=== PATIENT | male | born 1930 | race Caucasian/White ===

== ENCOUNTER 2021-02-18 16:44 | Emergency (ER) | payer OTHER ==
[~2021-02-18] VITALS: Ht 185.4 cm; Wt 72.6 kg
--- NOTE | ~2021-02-18 | EMS ---
[address] [address] EMS Patient Care Report Name: SKYLER JIMENEZ Room #: REG GEO Simms#: [id number] Admission: 02/18/21 Attend Phys: Discharge: Date of : [birth year] Report #: [id number] THIS REPORT FOR: //name// Report Transmitted: 02/18/2021 16:49 EMS Care Summary [facility] Incident [id number] @ 02/18/2021 15:56 Incident Location [address] [place] [address] Patient SKYLER JIMENEZ Male, 89 Years 1930 Patient Address [address] [place] [address] Patient History Dementia,Hypertension (HTN), Patient Allergies No known allergies, Patient Medications Guaifenesin, Aricept, Seroquel, Chief Complaint Combative Disposition Transported No Lights/[place] Reason Psychiatric Problem/Abnormal Behavior/Suicide Attempt Transported To [facility] Narrative Dispatched code one on a behavioral. ATF Pt sitting in chair at the nurses station, calm and watching EMS as they approached. Pt skin color appeared to be appropriate for race/warm/dry, A&O to self (normal per staff), did not appear to be having trouble breathing, and did not appear to be in any obvious signs [address] [address] EMS Patient Care Report Name: SKYLER JIMENEZ Room #: REG GEO Simms#: [id number] Admission: 02/18/21 Attend Phys: Discharge: Date of : [birth year] Report #: [id number] of distress. Nurse describes episodes of trying to swing at staff, spreading feces around his room and being generally aggressive/ combative. They wanted him to be transported out and to go to [facility], a doctor had called for placement there. Medic informed nurse that [facility] does not do stable transports out of nursing homes to psych facilities. Nurse got very agitated and said this has never happened before and that EMS needs to take him. Medic again restated that she would need to call [facility] for a transfer, especially since the Pt was calm and cooperative now. EMS can only take Pts to the ED and then he would have to be evaluated by an ED doctor for placement. Since Pt already had placement orders, [facility] would be the best route. Nurse stated that she hasn't called [facility] and doesn't want to because they take too long. She then stated that EMS should take Pt to the ED where he will then be admitted. Medic stated that there was no guarantee he would be placed or even see any further then the ED before being sent back, especially at . Nurse called supervisor maintenance and had medic talk to supervisor maintenance, medic repeated everything he had told the other nurse. Billet Bed Operator then stated that he should be taken to ED. Medic asked what for if he was to be admitted to [facility], would try to bounce him as soon as possible. Billet Bed Operator restated that he would be transferred for violent behavior to ED. Medic then asked if anyone had tried to contact Pt DPOA to see if they agreed to him being sent to ED. Facility staff had been too busy trying to push Pt out of door to contact DPOA at all. When daughter was finally gotten najma nieves nurse began to tell her that Pt had to be taken out, that he had to be evaluated at the ED and once he was he'd go straight to the medical center facility in the hospital. Medic asked to speak with the DPOA, medic told the daughter that EMS was more then happy to take the Pt to the ED but once he got there he would need to be triaged by a ED doctor. There was no guarantee that Pt would be admitted through the ED, that if Pt had placement already he needed to be taken by [facility] directly there. Medic went on to state that Pt has been reportedly violent but was calm now and that the facility concern was that the staff did not feel safe with him around right now. Medic restated that he was more then happy to take Pt to the ED but that DPOA would have to approve it. DPKARLA then asked "what exactly are you offering me then" Medic told her that he wasn't offering anything other then a ride to the ED. Daughter did not agree to anything but wanted to speak with the nurse. The nurse and DPOA argued for some time, eventually the nurse telling daughter that if she wasn't going to let EMS take him then she would need to come to the facility and get him herself because he couldn't stay there. They argued more and nurse began telling daughter that in all of her years as a nurse she has never seen EMS do this and that it's because medic was in dereliction of duty simply because he didn't want to deal with the Pt. Medic then firmly told nurse that EMS is happy to take Pt to ED but that they would not kidnap him or lie to DPOA. Eventually it was decided by daughter (confirmed directly with medic over the phone) that Pt would be transported to [facility]. DPOA was under the impression that he would be taken directly from ED to [facility] in patient and when medic again tried to explain, nurse began to talk over medic arguing with him. Medic gave up and with DPKARLA blessing went to transport Pt. Pt was [facility] [address] [address] EMS Patient Care Report Name: SKYLER JIMENEZ Room #: REG [facility]..#: [id number] Admission: 02/18/21 Attend Phys: Discharge: Date of : [birth year] Report #: [id number] cooperative with EMS, he was able to stand and transfer to stretcher with no assistance where he was buckled in and taken to MICU. Pt was transported without event or incident, vitals remained stable through out. Upon arrival care was transferred to UTILITY MECHANIC and Pt was left in ED with no additional complaints at this time. Jolene Jimenez [phone] daughter who medic spoke with on the phone. Initial Vitals @16:40P: 66,R: 14,BP: 171/82,SpO2: 100, @16:27P: 66,R: 14,BP: 173/83,Pain: 0/10,GCS: 14,SpO2: 96,Revised Trauma: 12, Impression Behavioral/psychiatric episode Timeline 15:54,Call Received 15:54,Psap Call 15:56,Dispatched 15:57,En Route 16:00,On Scene 16:04,At Patient 16:26,Depart Scene 16:27,BP: 173/83 M,PULSE: 66,RR: 14 R,SPO2: 96 Ox,ETCO2: ,BG: ,PAIN: 0,GCS: 14, 16:40,At Destination 16:40,BP: 171/82 M,PULSE: 66,RR: 14 R,SPO2: 100 Ox,ETCO2: ,BG: ,PAIN: ,GCS: , 17:06,Call Closed Disclaimer v1.1 Copyright 2020 [employer] This EMS Care Summary contains data elements from the applicable legal record (which may be displayed differently). It is designed to provide pertinent information for the following purposes: continuity of care, clinical quality, and state data reporting. The complete legal record is available to ED staff and administrators of the receiving hospital in [employer] Patient Tracker. All data is provided "as is."
[2021-02-18] MEDS ORDERED: ARICEPT10 M1 PO (17:01)
[2021-02-18] MEDS ORDERED: CLOBETASOL PROP15 GM TOP (17:02)
[2021-02-18] MEDS ORDERED: LAXATIVE5 M1 PO (17:03)
[2021-02-18] MEDS ORDERED: PRESERVISION A1 EAC2 PO (17:04)
[2021-02-18] MEDS ORDERED: ROBITUSSIN100 MG/53 PO (17:04)
[2021-02-18] MEDS ORDERED: SEROQUEL 25 MG25 M1 PO ×2 (17:05)
[2021-02-18] MEDS ORDERED: VITAMIN B-121000 MC2 SUBLING (17:06)
[2021-02-18] MEDS ORDERED: APAP650 PO (17:06)
[2021-02-18] MEDS ORDERED: VITAMIN D350 MC3 PO (17:07)
[2021-02-18] MEDS ORDERED: VITAMIN C1000 MG PO (17:07)
[2021-02-18 17:09] LABS: HEMATOCRIT 34.5 % (42.0-52.0); HEMOGLOBIN 11.4 gm/dL (14.0-18.0); MCH 30.7 pg (26.0-34.0); MCV 93.2 fL (80.0-100.0); RBC 3.7 mil/uL (4.50-6.00); RDW 14.6 % (10.5-14.5); WBC 3.5 thou/uL (4.0-11.0)
[2021-02-18 17:18] LABS: CALCIUM 8.5 mg/dL (8.5-10.1); CREATININE 1.1 mg/dL (0.7-1.3); POTASSIUM 3.6 mmol/L (3.5-5.1)
[2021-02-18 17:26] LABS: ALBUMIN 3.3 g/dL (3.4-5.0); TOTAL BILIRUBIN 0.2 mg/dL (0.2-1.0); TOTAL PROTEIN 6.8 g/dL (6.4-8.2)
[2021-02-18 18:56] LABS: URINE BILIRUBIN NEGATIVE (Negative); URINE BLOOD 3+ (Negative); URINE CLARITY CLEAR; URINE COLOR YELLOW; URINE GLUCOSE-RANDOM* NEGATIVE (Negative); URINE KETONES NEGATIVE (Negative); URINE LEUKOCYTES-REFLEX NEGATIVE (Negative); URINE NITRITE-REFLEX NEGATIVE (Negative); URINE PROTEIN (DIPSTICK) NEGATIVE (Negative); URINE UROBILINOGEN 0.2 E.U./dl (0.2-1.0)
[2021-02-18 19:02] LABS: AMP/METHAMP Negative (Negative); BARBITURATES Negative (Negative); BENZODIAZEPINES Negative (Negative); COCAINE Negative (Negative); METHADONE Negative (Negative); OPIATES Negative (Negative); PCP Negative (Negative)
[2021-02-18 19:05] LABS: CASTS None Seen /LPF (None Seen); SQUAMOUS None Seen /LPF (0-3)
[2021-02-18 19:06] LABS: BACTERIA-REFLEX None Seen /HPF (None Seen); CRYSTALS None Seen /LPF (None Seen); RENAL EPITHELIAL CELLS 0-3 Few /LPF (None Seen); TRANSITIONAL EPITHEL CELL 4-10 Moderate /LPF (None Seen); URINE RBC 3-10 Few /HPF (NONE SEEN); URINE WBC-REFLEX None Seen /HPF (0-5)
[2021-02-18 20:08] VITALS: BP 112/68
--- NOTE | 2021-02-19 11:26 | EKG ---
[address] [place] [address] ELECTROCARDIOGRAM REPORT Name: SKYLER SCHWARTZ Room #: [facility] [id number] Admission: 02/18/21 Attend Phys: Discharge: 02/18/21 Date of : [birth year] Report #: [id number] [facility] ED Test Date: 2021-02-18 Test Time: 16:47:57 Pat Name: SKYLER SCHWARTZ Department: Room: Gender: M Credit Risk Officer: MELISSA : 1930 Requested By: Chantell Gonzales Order Number: [id number] MD: Jay Fairbanks Measurements Intervals [place] Rate: 64 P: 0 LA: QRS: -7 QRSD: 100 T: 37 QT: 436 QTc: 450 Interpretive Statements NSR Abnormal R-wave progression, early transition Artifact in lead(s) I,II,aVR,aVL,aVF No previous ECG available for comparison Electronically Signed On 02-19-2021 11:26:25 CDT by Jay Fairbanks [email or web address] <ELECTRONICALLY SIGNED> By: Jay Fairbanks MD, [facility] 02/19/21 [id number] Jay Fairbanks MD, FACC /EPI
== END 2021-02-18 20:09 ==
LOC: ER 16:44
PROVIDERS: Nurse Practitioner Family
DX: F91.9 Conduct disorder, unspecified (principal); Z20.822 Contact with and (suspected) exposure to COVID-19; Z79.899 Other long term (current) drug therapy